=== PATIENT | female | born 1990 | race Caucasian/White ===

== ENCOUNTER → 2024-10-20 | Outpatient (CLI) | payer BC, SELFPAY ==
--- NOTE | 2024-10-20 10:19 | XR_ITS ---
Examination: PA lateral chest 2 views TECHNIQUE: Upright PA lateral chest 2 views Exam date and time: October 20, 2024 1027 hours Comparison 07/08/2010 INDICATIONS: Coughing difficulty breathing beginning 3 months ago. FINDINGS: Normal heart size The lungs are clear. The osseous structures are intact with moderate osteopenia IMPRESSION: No active disease
[2024-10-20 11:22] LABS: Basophils # (Auto) 0.1 Thou/mm3 (0.0-0.2); Basophils % (Auto) 1 % (0-2.5); Eosinophils # (Auto) 0.7 Thou/mm3 (0.0-0.5); Eosinophils % (Auto) 4 % (0-10); Hematocrit 45.6 % (36.0-46.0); Hemoglobin 15.4 g/dL (12.0-16.0); Immature Granulocytes % (Auto) 1 % (0-0); Immature Granulocytes Auto 0.08 Thou/mm3 (0.00-0.00); Lymphocytes # (Auto) 3.4 Thou/mm3 (1.0-4.8); Lymphocytes % (Auto) 24 % (10-50); Mean Corpuscular HGB Conc 33.8 g/dl (31.0-37.0); Mean Corpuscular Hemoglobin 30.4 pg (25.0-35.0); Mean Corpuscular Volume 90 fL (80-100); Monocytes # (Auto) 0.8 Thou/mm3 (0.0-0.8); Monocytes % (Auto) 6 % (0-12); Neutrophils # (Auto) 9.6 Thou/mm3 (1.8-7.7); Neutrophils % (Auto) 65 % (37-80); Nucleated Red Blood Cell % 0 /100 WBC (0); Platelet Count 260 Thou/mm3 (140-440); RDW Standard Deviation 41.5 fL (36.4-46.3); Red Blood Count 5.06 Miln/mm3 (4.00-5.20); White Blood Count 14.6 Thou/mm3 (3.6-11.0)
[2024-10-20 11:40] LABS: Alanine Aminotransferase 115 U/L (10-49); Albumin, Serum 4.9 gm/dL (3.5-5.0); Albumin/Globulin Ratio 1.8 (1.2-2.2); Alkaline Phosphatase 75 U/L (46-116); Anion Gap 11 (7-16); Aspartate Amino Transferase 79 U/L (0-34); BUN/Creatinine Ratio 9 Ratio (12-20); Bilirubin,Total 0.8 mg/dL (0.3-1.2); Blood Urea Nitrogen 7 mg/dL (9-23); Calcium 9.4 mg/dL (8.3-10.6); Calcium (Corrected) 9.4 mg/dL (8.5-10.1); Chloride 101 mMol/L (98-107); Creatinine (Component) 0.8 mg/dL (0.6-1.3); Globulin 2.8 gm/dL (2.3-3.5); Glucose 94 mg/dL (74-106); Osmolality,Calculated 269 (275-295); Potassium 3.5 mMol/L (3.4-5.1); Sodium 136 mMol/L (136-145); Total Protein 7.7 gm/dL (5.7-8.2); eGFR > 60 See Note
[2024-10-20 14:01] LABS: Cocci Serology, IgM Negative (Negative)
[2024-10-21 12:20] LABS: Cocci Serology, IgG Negative (Negative)
== END | disposition home or self-care (01) ==
LOC: CDIM 10:15 → COPL 10:37
PROVIDERS: PCP Physician Assistant; Referring Provider Physician Assistant; Visit Provider Radiology Diagnostic Radiology
DX: J20.9 Acute bronchitis, unspecified (principal); R53.83 Other fatigue; R61 Generalized hyperhidrosis
CPT/HCPCS: 36415; 71046; 80053; 85025; 86331; 86635

== ENCOUNTER 2025-05-30 07:50 | Day surgery (SDC) | payer BC, SELFPAY ==
[2025-05-29 09:50] VITALS: BMI 34.0
[2025-05-29 10:23] LABS: Basophils # (Auto) 0.1 Thou/mm3 (0.0-0.2); Basophils % (Auto) 1 % (0-2.5); Eosinophils # (Auto) 0.9 Thou/mm3 (0.0-0.5); Eosinophils % (Auto) 11 % (0-10); Hematocrit 44.6 % (36.0-46.0); Hemoglobin 15.5 g/dL (12.0-16.0); Immature Granulocytes Auto 0.02 Thou/mm3 (0.00-0.00); Lymphocytes # (Auto) 2.5 Thou/mm3 (1.0-4.8); Lymphocytes % (Auto) 29 % (10-50); Mean Corpuscular HGB Conc 34.8 g/dl (31.0-37.0); Mean Corpuscular Hemoglobin 31.4 pg (25.0-35.0); Mean Corpuscular Volume 90 fL (80-100); Monocytes # (Auto) 0.7 Thou/mm3 (0.0-0.8); Monocytes % (Auto) 8 % (0-12); Neutrophils # (Auto) 4.6 Thou/mm3 (1.8-7.7); Neutrophils % (Auto) 52 % (37-80); Nucleated Red Blood Cell # 0.00 Thou/mm3 (0.00-0.00); Nucleated Red Blood Cell % 0 /100 WBC (0); Platelet Count 328 Thou/mm3 (140-440); RDW Standard Deviation 40.7 fL (36.4-46.3); Red Blood Count 4.94 Miln/mm3 (4.00-5.20); White Blood Count 8.9 Thou/mm3 (3.6-11.0)
[2025-05-29 10:42] LABS: INR 0.9 (0.9-1.3); Partial Thromboplastin Time 26.5 Seconds (22.0-36.0); Prothrombin Time 10.3 Seconds (9.0-12.2)
[2025-05-29 10:44] LABS: Alanine Aminotransferase 94 U/L (10-49); Albumin, Serum 4.4 gm/dL (3.5-5.0); Albumin/Globulin Ratio 1.8 (1.2-2.2); Alkaline Phosphatase 70 U/L (46-116); Anion Gap 8 (7-16); Aspartate Amino Transferase 57 U/L (0-34); BUN/Creatinine Ratio 6 Ratio (12-20); Beta HCG,Quantitative < 1 mIU/mL (<5.0); Bilirubin,Total 0.5 mg/dL (0.3-1.2); Blood Urea Nitrogen < 5 mg/dL (9-23); Calcium 9.3 mg/dL (8.3-10.6); Calcium (Corrected) 9.3 mg/dL (8.5-10.1); Carbon Dioxide 23.8 mMol/L (20.0-31.0); Chloride 108 mMol/L (98-107); Creatinine (Component) 0.8 mg/dL (0.6-1.3); Estimated Creatinine Clearance 124.6 mL/min (>60); Globulin 2.4 gm/dL (2.3-3.5); Glucose 113 mg/dL (74-106); Osmolality,Calculated 277 (275-295); Potassium 3.8 mMol/L (3.4-5.1); Sodium 140 mMol/L (136-145); Total Protein 6.8 gm/dL (5.7-8.2); eGFR > 60 See Note
[2025-05-30] VITALS (11 sets, daily range): BP systolic 128–172; BP diastolic 92–112; PULSE 86–111; RESP 14–21; TEMP 36.5–37.1; O2SAT 98–100; BMI 33.7
--- NOTE | 2025-05-30 07:29 | ESHP_ITS ---
RE: FABIANO ARAGON : 1990 DATE OF ADMISSION: 05/30/2025 DATE OF SURGERY: 05/30/2025 HISTORY OF PRESENT ILLNESS: This is a 35-year-old 2, para 1-0-1-1 with abnormal uterine bleeding, which is a significant quality of life issue for her. Her partner has had a vasectomy. She declines future fertility. PAST MEDICAL HISTORY: Denies. PAST SURGICAL HISTORY: Diagnostic laparoscopy and endometriosis. Colonoscopy 2020, normal. ALLERGIES: PATIENT IS ALLERGIC TO SULFA. delivery, 5 pounds 12 ounce female. SOCIAL HISTORY: She is . She denies any alcohol, drug use, or smoking. FAMILY HISTORY: Lung cancer, hypothyroidism. REVIEW OF SYSTEMS: She denies any chest pain, palpitations, cough, fever, shortness of breath or lower extremity pain. PHYSICAL EXAMINATION: VITAL SIGNS: Blood pressure 110/70, heart rate 88, respirations 18, temperature 98.6. HEENT: Oropharynx and sclerae are clear. LUNGS: Clear to auscultation bilaterally. HEART: Regular rate and rhythm. ABDOMEN: Old trocar scars noted. EXTREMITIES: Nontender. SKIN: No gross rashes or lesions. NEUROLOGIC: No focal deficit. ASSESSMENT: Abnormal uterine bleeding. PLAN: Hysteroscopy, fractional dilatation, curettage, NovaSure endometrial ablation. Informed consent was obtained. She was made aware of the risk of injury to bowel or bladder, adjacent organs, pulmonary embolism, deep vein thrombosis, pelvic infection, reoperation to repair injury to internal organs, anesthesia complications, the possibility that a laparotomy needs to be performed to repair organs or control bleeding, and the possibility the procedure is not able to be completed due to severe adhesions or technical difficulties. DT: 06:54:17 TT: 07:25:00 Ref: [id number] - TID: [id number]
[2025-05-30] MEDS: RINGERS LACTATED 1000 ML 1,000 ML 30 ML IV (08:28)
--- NOTE | 2025-05-30 09:44 | ESOP_ITS ---
Operative Note - CONTROL ROOM OPERATOR Procedure Date of procedure: 05/30/25 Procedure Performed: Hysteroscopy, fractional dilatation curettage and NovaSure endometrial ablation Indication: Abnormal uterine bleeding Pre-Op diagnosis: Abnormal uterine bleeding Post-Op diagnosis: Abnormal uterine bleeding Anesthesia type: General Procedure description: After proper informed consent was obtained and the patient made aware of the risk complications alternatives and benefits of the proposed procedure she was taken to the operating room where she underwent induction of general anesthesia.? She was placed in the dorsal lithotomy position and prepped and dr aped the usual sterile fashion.? A timeout was performed.? A bivalve speculum was inserted.? A single-tooth tenaculum was used to grasp the anterior lip of the cervix.? The uterine cavity was sounded to 7.0 cm.? The cervical length measured 3.0 cm.? The cervix was dilated to accommodate the 5.5 mm Omni hysteroscope.? Using the Aquilex system and normal saline as the distending media the hysteroscopy was performed and no submucous myomas or polyps or distortions or irregularities of the uterine cavity were visualized. The endocervix was curetted with the Kevorkian curette and specimen sent to p athology.? The uterine cavity was curetted with a 5 mm curette and specimen sent to pathology.? The NovaSure catheter was plugged into the controller.? It went through its purge cycle.? The array was deployed and was found to be complete and intact with the width meter working properly. The Novasure catheter was appropriately seated in the uterine cavity.? The cavity length was 4.0 cm, ?the cavity width was 2.6 cm the power setting was 57 W.? The carbon dioxide cavity integrity assessment test was performed.? The uterine cavity was intact.? The controller was enabled and the ablation was performed for a total of 42 seconds before the controller shut off.? The array was retracted into the sheath and the catheter was removed from the uterine cavity.? The array was redeployed and found to be complete and intact.? There was bleeding at the anterior lip of the cervix at the site of the tenaculum and using the Bovie cautery hemostasis was achieved.? There was no bleeding at the end of the procedure.? All instruments were removed from the vagina.? She was reversed from general anesthesia in supine position and transferred to the cover room in stable condition.? She tolerated the procedure well.? Counts were correct.? I discussed with the patient's family the nature of her condition, the intraoperative findings, the expectation for recovery, all questions answered. Specimen: other (1. Endocervical curettings 2. Endometrial curettings) Estimated blood loss (ml): 2 Findings: Uterus sounded to 7.0 cm Cervical length is 3.0 cm Uterine cavity length is 4.0 cm Uterine cavity width 2.6 cm Power settin W Duration of ablation: 42 seconds Normal uterine cavity. No endocervical lesions or distortions or irregularities of the uterine cavity. Complications: none Surgical staff Operation Date: 05/30/25 10:00 Case Staff MEDICAL INSTRUMENT TECHNICIAN: Brandon Mc RN First Assistant: Lynsey Rowley Diagnosis Discharge Diagnosis (1) Abnormal uterine bleeding (AUB): Status: Acute (2) Status post endometrial ablation: Status: Acute Problem List Completed Was Problem List Reviewed/Reconciled?: Yes
[2025-05-30] MEDS: LABETALOL INJ 5 MG/ML VIAL 20 ML 10 MG IVP (09:54)
[2025-05-30] MEDS: ACETAMINOPHEN IVPB 1,000 MG/100 ML VIAL 250 MG IV (10:10)
--- NOTE | 2025-05-30 10:21 | SUR.PHASEI ---
0945: Pt received in [facility] via [facility]. Report from Palma HERNANDEZ and Shaun PABLO. Pt groggy, but awake. Resp even, unlabored. BP elevated. Anesthesia aware. Monitoring. Other VS stable. No vaginal bleeding. No c/o pain. 0954: BP remains elevated. New order received. Labetalol given per order. 1010: Pt more alert with c/o cramping to abdomen. Rates pain level 3/10. Received new order. Tylenol IV infusing.
--- NOTE | 2025-05-30 10:40 | SUR.PHASEII ---
1030: Pt has been resting with complaints voiced. BP down slightly. Anesthesia recommended pt follow up with primary physician for BP follow up. Pt states pain level is down and has just very mild cramping. VS stable. No vaginal bleeding.
--- NOTE | 2025-05-30 11:18 | SUR.PHASEII ---
1045: Pt fully awake, oriented x3. BP remains stable elevated. Other VS stable. Pt denies pain, cramping. No vaginal bleeding. Pt sitting up tolerating po fluids with no difficulty swallowing and no n/v. 1113: Pt dressed. Assisted to transport chair. Ambulation steady. Pt and stated understanding of discharge instructions. Pt discharged from [facility] in stable condition.
== END 2025-05-30 11:13 | disposition home or self-care (01) ==
PROVIDERS: PCP Family Medicine; Referring Provider Specialist; Visit Provider Specialist
PROC: 0U5B8ZZ Destruction of Endometrium, Via Natural or Artificial Opening Endoscopic (ICD-10-PCS; CPT 58563; principal; 2025-05-30 09:45)
DX: N93.9 Abnormal uterine and vaginal bleeding, unspecified (principal)
CPT/HCPCS: 58563; 36415; 80053; 84702; 85025; 85610; 85730; 86850; 86900; 86901; A4217; A4649; J0131; J0330; J0690; J1885; J2250; J2704; J3010; J3490; J7120; J1920